=== PATIENT | female | born 2000 | race Two or more races ===

== ENCOUNTER 2022-02-13 17:36 | Emergency (ER) | payer OTHER ==
[~2022-02-13] VITALS: Ht 157.5 cm; Wt 57.2 kg
== END 2022-02-13 21:58 | disposition home or self-care (01) ==
LOC: ER 17:36
DX: O26.891 Other specified pregnancy related conditions, first trimester (principal); Z3A.01 Less than 8 weeks gestation of pregnancy; R10.2 Pelvic and perineal pain

== ENCOUNTER 2022-04-05 20:33 | Emergency (ER) | payer OTHER ==
[~2022-04-05] VITALS: Ht 157.5 cm; Wt 59.9 kg
[2022-04-05] MEDS ORDERED: PRENATALES (21:25)
[2022-04-05] MEDS ORDERED: DUI500 PO (21:37)
== END 2022-04-05 21:43 | disposition home or self-care (01) ==
LOC: ER 20:33
DX: N61.0 Mastitis without abscess (principal); Z88.6 Allergy status to analgesic agent

== ENCOUNTER 2022-04-18 10:10 | Outpatient (CLI) | payer OTHER ==
[~2022-04-18 10:10] MED LIST: DUI500 PO; PRENATALES
== END 2022-04-18 11:26 | disposition home or self-care (01) ==
LOC: PRENATAL 10:10
PROVIDERS: ATTEND Obstetrics & Gynecology Maternal & Fetal Medicine
DX: O26.849 Uterine size-date discrepancy, unspecified trimester (principal); O36.8199 Decreased fetal movements, unspecified trimester, other fetus; O35.0XX0 Maternal care for (suspected) central nervous system malformation in fetus, not applicable or unspecified; Z3A.36 36 weeks gestation of pregnancy

== ENCOUNTER 2022-05-25 10:43 | Outpatient (CLI) | payer OTHER | END 2022-05-25 11:56 | disposition home or self-care (01) | LOC: PRENATAL 10:43 | PROVIDERS: ATTEND Obstetrics & Gynecology Maternal & Fetal Medicine | DX: O35.0XX0 Maternal care for (suspected) central nervous system malformation in fetus, not applicable or unspecified (principal); O35.3XX0 Maternal care for (suspected) damage to fetus from viral disease in mother, not applicable or unspecified; Z88.6 Allergy status to analgesic agent; Z3A.20 20 weeks gestation of pregnancy ==

== ENCOUNTER 2022-06-07 15:51 | Emergency (ER) | payer OTHER ==
[~2022-06-07] VITALS: Ht 157.5 cm; Wt 66.7 kg
== END 2022-06-07 18:06 | disposition home or self-care (01) ==
LOC: ER 15:51
DX: R21 Rash and other nonspecific skin eruption (principal); L53.9 Erythematous condition, unspecified

== ENCOUNTER 2022-07-18 20:48 | Emergency (ER) | payer OTHER ==
[~2022-07-18] VITALS: Ht 157.5 cm; Wt 69.4 kg
== END 2022-07-18 21:51 | disposition home or self-care (01) ==
LOC: ER 20:48
DX: U07.1 COVID-19 (principal)

== ENCOUNTER 2022-08-21 12:29 | Outpatient (CLI) | payer OTHER | END 2022-08-21 15:45 | disposition home or self-care (01) | LOC: PRENATAL 12:29 | PROVIDERS: ATTEND Obstetrics & Gynecology Maternal & Fetal Medicine | DX: O26.849 Uterine size-date discrepancy, unspecified trimester (principal); O36.8199 Decreased fetal movements, unspecified trimester, other fetus; Z3A.32 32 weeks gestation of pregnancy ==

== ENCOUNTER 2022-10-09 18:27 | Inpatient (IN) | payer OTHER ==
[~2022-10-09] VITALS: Ht 157.5 cm; Wt 72.1 kg
[2022-10-09] MEDS ORDERED: PRENATAL TABLE1 EAC1 PO (21:20)
== END 2022-10-12 14:03 | disposition home or self-care (01) | DRG 807 ==
LOC: OB/GYN 18:27 → LDR 18:27 → OB/GYN 10-10 14:29
PROVIDERS: ADMIT Obstetrics & Gynecology; ATTEND Obstetrics & Gynecology
PROC: 4A1HXCZ Monitoring of Products of Conception, Cardiac Rate, External Approach (ICD-10-PCS; 2022-10-09)
PROC: 10E0XZZ Delivery of Products of Conception, External Approach (ICD-10-PCS; principal; 2022-10-10)
DX: O80 Encounter for full-term uncomplicated delivery (principal); Z37.0 Single live birth; Z3A.39 39 weeks gestation of pregnancy; Z20.822 Contact with and (suspected) exposure to COVID-19